=== PATIENT | male | born 1960 | race Caucasian/White ===

== ENCOUNTER → 2018-04-14 15:43 | Outpatient (REF) | payer MEDICARE, OTHER, SELFPAY | LOC: LAB 15:43 | PROVIDERS: Family Provider Family Medicine; PCP Family Medicine; Visit Provider Otolaryngology Facial Plastic Surgery | DX: J32.8 Other chronic sinusitis (principal) | CPT/HCPCS: 87070; 87077; 87147; 87186 ==